=== PATIENT | female | born 1985 | race Caucasian/White ===

== ENCOUNTER → 2016-10-28 | Outpatient (CLI) | payer OTHER ==
[2016-10-28 13:13] LABS: HEMATOCRIT 37.2 % (35.0-46.0); MEAN CELL VOLUME 68.4 FL (80.0-100.0); MEAN CORPUSCULAR HEMOGLOBIN 21.5 PG (27.0-34.0); MEAN CORPUSCULAR HGB CONC 31.4 % (32.0-36.0); PLATELET COUNT 206 TH/MM3 (150-450); RED BLOOD COUNT 5.44 MIL/MM3 (4.00-5.30); RED CELL DISTRIBUTION WIDTH 14.4 % (11.6-17.2); REVIEW FLAG FINAL
[2016-10-28 13:48] LABS: FREE T4 0.84 NG/DL (0.76-1.46)
[2016-10-28 13:51] LABS: RUBELLA IGG ANTIBODY 148.6 IU/mL (10.0-500.0); RUBELLA STATUS IMMUNE (IMMUNE)
[2016-10-29 14:56] LABS: RAPID PLASMA REAGIN SCREEN NON-REACTIVE (NON-REACTVE)
== END ==
LOC: CLAB 12:28
DX: Z31.49 Encounter for other procreative investigation and testing (principal); Z11.59 Encounter for screening for other viral diseases; Z11.9 Encounter for screening for infectious and parasitic diseases, unspecified
CPT/HCPCS: 36415; 84439; 84443; 85027; 86592; 86703; 86705; 86762; 86787; 86803; 86900; 86901; 87340

== ENCOUNTER → 2016-10-31 | Outpatient (CLI) | payer OTHER ==
[2016-10-31 09:57] LABS: TRANSFERRIN IRON PROFILE 184 MG/DL (200-360)
[2016-10-31 10:00] LABS: FERRITIN 60 NG/ML (8-252)
== END ==
LOC: CLAB 08:49
DX: D50.8 Other iron deficiency anemias (principal)
CPT/HCPCS: 36415; 82728; 83020; 83540; 83550

== ENCOUNTER → 2016-12-31 | Outpatient (CLI) | payer OTHER ==
[2016-12-31 10:24] LABS: BETA HCG QUANT 227 MIU/ML (0-5)
[2017-01-02 17:51] LABS: PROGESTERONE 15.2 ng/mL
== END ==
LOC: CLAB 09:33
DX: Z32.00 Encounter for pregnancy test, result unknown (principal)
CPT/HCPCS: 36415; 82670; 84144; 84702

== ENCOUNTER → 2017-03-16 | Outpatient (CLI) | payer OTHER ==
[2017-03-16 08:38] LABS: AUTOMATED NEUTROPHIL # 8.8 TH/MM3 (1.8-7.7); BASOPHIL % 0.3 % (0.0-2.0); EOSINOPHIL # 0.2 TH/MM3 (0-0.4); EOSINOPHIL % 1.3 % (0.0-4.0); HEMATOCRIT 33.6 % (35.0-46.0); HEMO FLAGS DIFF FINAL; LYMPH % 19.4 % (9.0-44.0); LYMPHOCYTE # 2.3 TH/MM3 (1.0-4.8); MEAN CELL VOLUME 66.6 FL (80.0-100.0); MEAN CORPUSCULAR HEMOGLOBIN 20.6 PG (27.0-34.0); MEAN CORPUSCULAR HGB CONC 30.9 % (32.0-36.0); MONO % 4.7 % (0.0-8.0); NEUT % 74.3 % (16.0-70.0); PLATELET COUNT 208 TH/MM3 (150-450); RED BLOOD COUNT 5.05 MIL/MM3 (4.00-5.30); RED CELL DISTRIBUTION WIDTH 14.9 % (11.6-17.2); WHITE BLOOD COUNT 11.8 TH/MM3 (4.0-11.0)
[2017-03-16 09:06] LABS: RUBELLA IGG ANTIBODY 129.1 IU/mL (10.0-500.0); RUBELLA STATUS IMMUNE (IMMUNE)
[2017-03-16 09:25] LABS: SICKLE CELL SCREEN NEG (NEG)
[2017-03-16 11:03] LABS: BACTERIA, URINE OCC /hpf; BLOOD, URINE NEG (NEG); COMMENT (UR) CULT NOT INDICATED; CULTURE IF INDICATED CULT NOT INDICATED; GLUCOSE,URINE NEG (NEG); KETONE, URINE 10 mg/dL (NEG); MUCUS URINE FEW /lpf (OCC); NITRITE,URINE NEG (NEG); SQUAMOUS EPITHELIAL CELL URINE 1 /hpf (0-5); URINE COLOR YELLOW (YELLW/STRAW)
== END ==
LOC: CLAB 07:39
PROVIDERS: ATTEND Obstetrics & Gynecology
DX: Z34.81 Encounter for supervision of other normal pregnancy, first trimester (principal)
CPT/HCPCS: 36415; 81001; 81220; 84443; 85025; 85660; 86592; 86762; 86787; 86850; 86900; 86901; 87340

== ENCOUNTER → 2017-04-23 | Outpatient (CLI) | payer OTHER ==
[2017-04-24 17:14] LABS: CALCULATED AGE AT EDD 32 years; GA USED IN RISK ESTIMATE Scan estimate; MATERNAL RACE BLACK non-Black; MATERNAL WEIGHT (LBS) 166 lbs
== END ==
LOC: CLAB 09:22
PROVIDERS: ATTEND Obstetrics & Gynecology
DX: Z34.92 Encounter for supervision of normal pregnancy, unspecified, second trimester (principal)
CPT/HCPCS: 36415; 81511

== ENCOUNTER → 2017-05-13 | Outpatient (CLI) | payer OTHER | LOC: HPND 08:04 | PROVIDERS: ATTEND Obstetrics & Gynecology | DX: O30.042 Twin pregnancy, dichorionic/diamniotic, second trimester (principal); O09.812 Supervision of pregnancy resulting from assisted reproductive technology, second trimester | CPT/HCPCS: 76811; 76812; 76817; 76825; 76827; 93325 ==

== ENCOUNTER → 2017-06-05 | Outpatient (CLI) | payer OTHER ==
[2017-06-05 09:50] LABS: HEMATOCRIT 34.5 % (35.0-46.0)
[2017-06-05 10:10] LABS: BACTERIA, URINE MANY /hpf; BILIRUBIN, URINE NEG (NEG); BLOOD, URINE NEG (NEG); GLUCOSE,URINE NEG (NEG); KETONE, URINE NEG (NEG); MUCUS URINE FEW /lpf (OCC); NITRITE,URINE NEG (NEG); PH, URINE 6.5 (5.0-8.5); SQUAMOUS EPITHELIAL CELL URINE 7 /hpf (0-5); URINE COLOR YELLOW (YELLW/STRAW); URINE LEUKOCYTE ESTERASE SMALL (NEG)
== END ==
LOC: CLAB 08:16
PROVIDERS: ATTEND Obstetrics & Gynecology
DX: Z34.83 Encounter for supervision of other normal pregnancy, third trimester (principal); Z33.1 Pregnant state, incidental; R82.99 Other abnormal findings in urine
CPT/HCPCS: 36415; 81001; 82951; 85014; 85018; 87086

== ENCOUNTER → 2017-06-08 | Outpatient (CLI) | payer OTHER | LOC: HPND 10:21 | PROVIDERS: ATTEND Obstetrics & Gynecology | DX: O09.812 Supervision of pregnancy resulting from assisted reproductive technology, second trimester (principal); O30.042 Twin pregnancy, dichorionic/diamniotic, second trimester; O31.8X Other complications specific to multiple gestation | CPT/HCPCS: 76816; 76817; 76818 ==

== ENCOUNTER 2017-06-15 09:22 | Observation (INO) | payer OTHER ==
[2017-06-15] VITALS (23 sets, daily range): BP systolic 126–145; BP diastolic 67–93; PULSE 78–99; RESP 16–49; TEMP 98–98.4
[~2017-06-15] VITALS: Ht 162.6 cm; Wt 86.2 kg
[2017-06-15] MEDS ORDERED: SODIUM CHLORIDE 0.9% FLUSH 10 ML FLUSH IV FLUSH PRN (09:30)
[2017-06-15] MEDS ORDERED: ONDANSETRON ODT 4 MG TAB PO PRN (09:30)
--- NOTE | 2017-06-15 09:52 | PD ---
HPI Chief Complaint Elevated blood pressure Date Seen: Jun 15, 2017 Time Seen: 09:47 Travel History International Travel<30 Days: No Contact w/Intl Traveler<30Days: No Known Affected Area: No History of Present Illness HPI 32-year-old primigravida at 27 weeks 5 days gestation with an EDC of September 08, 2017 who was sent from OB diagnostics due to increased blood pressure. The patient has been checking some blood pressures at home and has had several readings greater than 140 systolic. She notes a mild headache today, no visual changes or abdominal pain. Mild increase in swelling noted. History Past Medical History Medical History: Denies Significant Hx Obstetric History Obstetric History Dichorionic diamniotic twin gestation, 23% discordance recent ultrasound, biophysical profiles 10 of 10 this morning care with Dr. Veronica Past Surgical History Narrative Surgical Appendectomy Family History Family History: Negative Social History Alcohol Use: No Tobacco Use: No Substance Abuse: No Allergies-Medications (Allergen,Severity, Reaction): Coded Allergies: doxycycline (Verified Allergy, Unknown, 06/15/17) rash Review of Systems Except as stated in HPI: all other systems reviewed are Neg Physical Exam Narrative GENERAL: Well-nourished, well-developed patient. SKIN: Warm and dry. HEAD: Normocephalic and atraumatic. EYES: No scleral icterus. No injection or drainage. ENT: No nasal drainage noted. Mucous membranes pink. Airway patent. NECK: Supple, trachea midline. No JVD. CARDIOVASCULAR: Regular rate and rhythm without murmurs, gallops, or rubs. RESPIRATORY: Breath sounds equal bilaterally. No accessory muscle use. BREASTS: Bilateral exam showed no masses , no retractions, no nipple discharge. ABDOMEN/GI: Abdomen soft, non-tender, bowel sounds present, no rebound, no guarding Gravid to [-30] weeks size Fundal Height: [-] GENITOURINARY: External Genitalia: intact and normal in appearance BUS glands: [-] Cervix: [-] Dilatation: [-] Effacement: [-] Station: [-] Presentation: [-] Membranes: [intact or ruptured] Uterine Contractions: [-] FHT's: Category: [-12] Baseline: [-] Reactive: [-Yes 2] Variability: [-] Decels: [-] EXTREMITIES: No cyanosis, trace edema. BACK: Nontender without obvious deformity. No CVA tenderness. NEUROLOGICAL: Awake and alert. Motor and sensory grossly within normal limits. Five out of 5 muscle strength in all muscle groups. Normal speech. Data Data Vital Signs Reviewed: Yes Orders Orders Place In Observation (06/15/17 ) Code Status (06/15/17 09:28) Vital Signs (Adult) Q5MX4,Q15MX4,Q30MX2,Q1H (06/15/17:28) Activity Bed Rest (06/15/17:) Intake + Output Q1H (06/15/17:28) Notify Dr. Palencia (06/15/17:28) Diet Liquid (06/15/17 Breakfast) Sodium Chloride 0.9% Flush (Ns Flush) (06/15/17 09:30) Sodium Chloride 0.9% Flush (Ns Flush) (06/15/17 21:00) Ondansetron Odt (Zofran Odt) (06/15/17 09:30) Knkmpsdl-Fec-Vrpve-Iron Prenat ([place] (06/16/17 09:00) Cbc No Diff, Includes Plts (06/15/17 09:28) Cbc No Diff, Includes Plts (06/16/17 06:00) Comprehensive Metabolic Panel (06/15/17:28) Comprehensive Metabolic Panel (06/16/17 06:00) Uric Acid (06/15/17:28) Urinalysis - C+S If Indicated (06/15/17:) Total Protein 24hr Urine (06/15/17:28) MDM Medical Record Reviewed: Yes Narrative Course / MDM Assessment: 27 week dichorionic diamniotic twin gestation with elevated blood pressures admitted for observation and rule out preeclampsia. Plan: Initiate 24-hour urine, CBC, CMP Oziel Gordon MD Jun 15, 2017 09:52
[2017-06-15 10:12] LABS: HEMATOCRIT 34.9 % (35.0-46.0); HEMOGLOBIN 11.1 GM/DL (11.6-15.3); MEAN CELL VOLUME 68.5 FL (80.0-100.0); MEAN CORPUSCULAR HEMOGLOBIN 21.7 PG (27.0-34.0); MEAN CORPUSCULAR HGB CONC 31.7 % (32.0-36.0); MEAN PLATELET VOLUME 11.3 FL (7.0-11.0); PLATELET COUNT 153 TH/MM3 (150-450); RED BLOOD COUNT 5.09 MIL/MM3 (4.00-5.30); RED CELL DISTRIBUTION WIDTH 14.8 % (11.6-17.2); WHITE BLOOD COUNT 14.8 TH/MM3 (4.0-11.0)
[2017-06-15 10:22] LABS: BACTERIA, URINE RARE /hpf; BILIRUBIN, URINE NEG (NEG); BLOOD, URINE NEG (NEG); GLUCOSE,URINE NEG (NEG); HYALINE CAST, URINE 1 /lpf (RARE); KETONE, URINE NEG (NEG); MUCUS URINE FEW /lpf (OCC); NITRITE,URINE NEG (NEG); SQUAMOUS EPITHELIAL CELL URINE 1 /hpf (0-5); URINE COLOR YELLOW (YELLW/STRAW); URINE LEUKOCYTE ESTERASE SMALL (NEG)
[2017-06-15 10:39] LABS: ALBUMIN 2.8 GM/DL (3.4-5.0); AST (GOT) 24 U/L (15-37); BICARBONATE 22.6 MEQ/L (21.0-32.0); BLOOD UREA NITROGEN 9 MG/DL (7-18); CHLORIDE 107 MEQ/L (98-107); CREATININE 0.52 MG/DL (0.50-1.00); GLOMERULAR FILTRATION RATE 137 ML/MIN (>89); GLUCOSE,RANDOM 70 MG/DL (74-106); SODIUM (NA) 139 MEQ/L (136-145)
[2017-06-15 10:42] LABS: ALKALINE PHOSPHATASE 129 U/L (45-117); ALT (GPT) 24 U/L (10-53); TOTAL BILIRUBIN ADULT 0.4 MG/DL (0.2-1.0); TOTAL PROTEIN 6.7 GM/DL (6.4-8.2)
[2017-06-15] MEDS ORDERED: PREN29TA PO (11:09)
[2017-06-15] MEDS ORDERED: DHA100CA PO (11:11)
[2017-06-15] MEDS ORDERED: VITD400 PO (11:11)
[2017-06-15] MEDS ORDERED: ASPI-516 (11:11)
[2017-06-15] MEDS ORDERED: ACETAMINOPHEN 325 MG TAB PO PRN (13:15)
[2017-06-15] MEDS ORDERED: BETAMETHASONE SOD PHOS/ACETATE SUSP 30 MG/5 ML VIAL IM ONE (13:45)
--- NOTE | 2017-06-15 16:43 | HHI.PR ---
COLOR FINISHER Note Note note placed in error Prudencio Warner MD Jun 15, 2017 16:43
[2017-06-15] MEDS ORDERED: SODIUM CHLORIDE 0.9% FLUSH 10 ML FLUSH IV FLUSH SCH (21:00)
--- NOTE | 2017-06-15 22:38 | HHI.PR ---
Addendum to Inpatient Note Addendum Reason: Additional Documentation Additional Information Consult Maternal Hx: 32y/o, , female at 27 weeks gestation with diagnosis of gestation hypertension (r/o pre-eclampsia) and di/di twin gestation. Mother admitted to L & D on 06/15/17 secondary to hypertension with headache and vision changes. Most recent Ultrasound on 06/15/17 confirms intrauterine twin , currently at 27.6 weeks gestation with discordance of ~23%. Twin A has known malpresentation which will require a C/S at the time of delivery per OB note. Estimated weight of twin A is 888 grams and twin B 1156 grams. Maternal risk factors/complications: IVF Maternal Labs: Rubella immune, RPR NR, Hepatitis B Neg, HIV Neg, GC Neg, CZ Neg, GBS unknown Maternal Medications: PNV Vitamin D3 Betamethasone (1st dose given 06/15/17) Social: Marital status: ( Latrice was present for consultation) Family Hx: First Substance Abuse: None Discussion: [employer] and NICU supervisor in charge (Mounika Pozo) met with MOB and her to discuss potential delivery. Initially, delivery room resuscitation and airway management were discussed. The need for CPAP +/- PPV/intubation was discussed. The importance of receiving steroids was explained as well as the potential need for surfactant administration after delivery. It was then explained that the infants would need IV placement and potentially central line placement for IVF/nutritional management while enteral feedings are initiated and gradually advanced. Mom intends to breastfeed and was encouraged to start pumping as soon as possible after delivery (ideally within the first hour). The importance of using donor breast milk if moms milk is not available was discussed. Infants will receive feeds via a nasogastric tube initially until they are developmentally ready to take feeds by mouth. Family was informed about the potential risk of infection that may require a rule out course of antibiotics and a blood culture which will be determined by the team present at the delivery. The increased risk of jaundice and need for close monitoring was discussed. Other risks of prematurity and appropriate screening such as IVH/ 1 week HUS and ROP/4 week ophthalmology exam were explained. NICU admission was explained. MOB asked about kangaroo care in the delivery room and was told that would depend on gestational age at delivery. Kangaroo care is strongly encouraged after admission and stabilization in the NICU. Frequent family visiting and parental involvement in infants care is strongly encouraged. Multidisciplinary rounds were discussed and again parental participation was encouraged. Medical team coverage with 24/7 [employer] coverage and latin american studies director presence or rapid response as needed was explained. Support services such as and case management were also discussed. MOB and verbalized understanding. MOB has a positive attitude and is hopeful to continue to closer to term but asked appropriate questions and appreciated information. Family was encouraged to process information and request to speak with team in the future should further questions arise. . Greater than 50% of the consultation time was spent with the patient. Dulce Short Jun 15, 2017 22:38
[2017-06-16 04:35] VITALS: BP 148/67; PULSE 77; RESP 16; TEMP 98
[2017-06-16 05:51] LABS: HEMATOCRIT 32.7 % (35.0-46.0); HEMOGLOBIN 10.5 GM/DL (11.6-15.3); MEAN CELL VOLUME 67.5 FL (80.0-100.0); MEAN CORPUSCULAR HEMOGLOBIN 21.6 PG (27.0-34.0); MEAN PLATELET VOLUME 11.8 FL (7.0-11.0); PLATELET COUNT 160 TH/MM3 (150-450); RED BLOOD COUNT 4.84 MIL/MM3 (4.00-5.30); RED CELL DISTRIBUTION WIDTH 14.7 % (11.6-17.2); WHITE BLOOD COUNT 19.6 TH/MM3 (4.0-11.0)
[2017-06-16 06:16] LABS: ALBUMIN 2.7 GM/DL (3.4-5.0); ALT (GPT) 22 U/L (10-53); AST (GOT) 24 U/L (15-37); BICARBONATE 19.2 MEQ/L (21.0-32.0); CHLORIDE 108 MEQ/L (98-107); CREATININE 0.62 MG/DL (0.50-1.00); GLOMERULAR FILTRATION RATE 112 ML/MIN (>89); GLUCOSE,RANDOM 113 MG/DL (74-106); SODIUM (NA) 137 MEQ/L (136-145)
[2017-06-16 06:22] LABS: ALKALINE PHOSPHATASE 124 U/L (45-117); BLOOD UREA NITROGEN 11 MG/DL (7-18); TOTAL BILIRUBIN ADULT 0.4 MG/DL (0.2-1.0); TOTAL PROTEIN 6.4 GM/DL (6.4-8.2)
[2017-06-16 07:31] VITALS: BP 138/81; PULSE 80
[2017-06-16 07:59] VITALS: TEMP 98
[2017-06-16 08:00] VITALS: RESP 16
--- NOTE | 2017-06-16 08:21 | HHI.PR ---
MANAGER STRATEGIC Note Note S: Doing well, no visual changes, headache has lessened without treatment since yesterday, she states she has developed headaches throughout her , denies right upper quadrant pain, endorses movement. O: Fetus: FHTs: - A: 130s to 140s, moderate variability, accelerations present, no decelerations - B: 130s to 140s, moderate variability, accelerations present, no decelerations [place]: A/P: 32 yo G1 at 28wd 1. IVF preg / Shoaib gestation: BID EFM, Cat 1 tracings x2 - EFW (06/08): A = 888g (23%), B = 1156g (72%), 23% discord. Posterior placentas - US on 06/15 = 10/ BPP x2, normal dopplers, trans/trans. - Malpresentation of Baby A, aware of need for at time of delivery. - Male (A) / Female (B) - s/p BMZ #1 on 06/15, repeat today, pt may return for BMZ only if d/c this AM 2. r/o Prec vs GHTN: - HELLP labs WNL on arrival, Plts of 153 (BL of 208 in March), repeat this AM unchanged, patient's headache improved without treatment, also has a history of headaches. Do not feel this represents severe features at this time, blood pressures normotensive to mild range throughout stay. - 24hr urine pending, (no baseline to compare) - Dispo: likely continue outpatient monitoring, 2x / week BPP & dopplers and weekly HELLP, discussed limited activity, signs and symptoms of preeclampsia, 3. Elevated DS risk on QS: 1:250-1:416, s/p MFM consult, declined Amnio, normal anatomys. Prudencio Warner MD Jun 16, 2017 08:21
--- NOTE | 2017-06-16 08:41 | HHI.DS ---
Admission Date Jun 15, 2017 at 09:44 Discharge Date: Jun 16, 2017 Admitting Diagnosis Dx at time of discharge 1. Preeclampsia without severe features 2. Dichorionic diamniotic twin gestation at 28 weeks and 0 days 3. growth discordance 4. Increased Down syndrome risk on quad screen Diagnosis: Brief History 32 yo G1 who presented at 27w6d due to new elevated BPs found during testing, she had HELLP labs that returned overall normal, her platelets were lower than her baseline, the beginning of her they were 208, and there were 153, her HELLP labs were re collected 24-hour after admission and remained stable and normal. Her 24 hr urine resulted at 754mg. She received betamethasone dose #1 for lung maturity and the plan was for her to return in the afternoon of the day of her discharge for #2. She had category 1 tracing for both baby A and baby B during her stay. She had a 10 out of 10 BPP the day prior to her discharge. She did have a mild headache upon presentation, this had almost resolved at the day of discharge without treatment. She had no other signs or symptoms of severe disease. Follow-up instructions: Patient to follow-up in the office on or Thursday of this week. She is also to continue twice weekly testing with the MFM practice at the hospital, and also suggested weekly HELLP labs. Pt Condition on Discharge: Good Discharge Disposition: Discharge Home (Patient recommended limited activities, monitor blood pressures at home and record these, and also be mindful of headache, blurred vision, epigastric pain or right upper quadrant pain.) Discharge Instructions Diet Instructions: As Tolerated, No Restrictions Activities You Can Perform: See Additionl Instruction (limited activity) Activities to Avoid: Strenuous Activity Additional Activity Instruc.: Limited activity, Follow up Referrals: SUPERVISOR TELEPHONE ANSWERING SERVICE - 1 Week @ [facility] Continued Medications: Aspirin (Aspirin) 81 Mg Chew 81 MG DAILY, TAB 0 Refills Cholecalciferol (Vitamin D3) 400 Unit Tab 800 UNITS PO DAILY for Nutritional Supplement, #1 TAB 0 Refills Docosahexaenoic Acid (Dha [place] 3) 100 Mg Cap PO DAILY, CAP Vit-Iron Carbonyl ( Plus Iron 29-1 mg) 29 Mg Iron-1 Mg Tab 1 TAB PO DAILY for Nutritional Supplement, #30 TAB 0 Refills Prudencio Warner MD Jun 16, 2017 08:41
[2017-06-16] MEDS ORDERED: DHA PO SCH (09:00)
[2017-06-16] MEDS ORDERED: ASPIRIN 81 MG CHEW TAB PO SCH ×2 (09:00)
[2017-06-16] MEDS ORDERED: CHOLECALCIFEROL (VIT D3) 400 UNIT TAB PO SCH (09:00)
[2017-06-16] MEDS ORDERED: MULTIVIT/MIN/PREN/FOL AC/IRON PRENATAL TAB PO SCH (09:00)
[2017-06-16] MEDS ORDERED: BETAMETHASONE SOD PHOS/ACETATE SUSP 30 MG/5 ML VIAL IM ONE (14:00)
== END 2017-06-16 09:21 | disposition home or self-care (01) ==
LOC: HOBED 09:22 → H2EA 09:44
PROVIDERS: ADMIT Obstetrics & Gynecology; ATTEND Obstetrics & Gynecology
DX: O30.043 Twin pregnancy, dichorionic/diamniotic, third trimester (principal); O14.93 Unspecified pre-eclampsia, third trimester; O09.813 Supervision of pregnancy resulting from assisted reproductive technology, third trimester; O32.9XX0 Maternal care for malpresentation of fetus, unspecified, not applicable or unspecified; Z3A.28 28 weeks gestation of pregnancy
CPT/HCPCS: 59025; 80053; 81001; 84157; 84550; 85027; 96372; 99285; G0378; J0702

== ENCOUNTER → 2017-06-16 | Outpatient (CLI) | payer OTHER ==
[~2017-06-16] MED LIST: ASPI-516; BETAMETHASONE SOD PHOS/ACETATE SUSP 30 MG/5 ML VIAL IM ONE; DHA100CA PO; MORPHINE SULFATE PF 5 MG/10 ML VIAL ONE; ONDANSETRON HCL 4 MG/2 ML VIAL ONE; OXYC1TAB63 PO; OXYTOCIN 30 UNITS-500ML PREMIX 500 ML ONE; PREN29TA PO; VITD400 PO
== END ==
LOC: HOBG 14:27
PROVIDERS: ATTEND Obstetrics & Gynecology
DX: O14.92 Unspecified pre-eclampsia, second trimester (principal); O30.042 Twin pregnancy, dichorionic/diamniotic, second trimester; Z3A.27 27 weeks gestation of pregnancy
CPT/HCPCS: 96372; J0702

== ENCOUNTER 2017-06-19 01:55 | Inpatient (IN) | payer OTHER ==
[2017-06-19] VITALS (49 sets, daily range): BP systolic 70–158; BP diastolic 52–105; PULSE 63–124; RESP 16–22; TEMP 97.8–98.6; O2SAT 97–100
[~2017-06-19 01:55] MED LIST changes: -BETAMETHASONE SOD PHOS/ACETATE SUSP 30 MG/5 ML VIAL IM ONE; -MORPHINE SULFATE PF 5 MG/10 ML VIAL ONE; -ONDANSETRON HCL 4 MG/2 ML VIAL ONE; -OXYC1TAB63 PO; -OXYTOCIN 30 UNITS-500ML PREMIX 500 ML ONE
--- NOTE | 2017-06-19 02:04 | PD ---
HPI Chief Complaint "I'm pre-eclamptic" Date Seen: Jun 19, 2017 Time Seen: 02:02 Travel History International Travel<30 Days: No Contact w/Intl Traveler<30Days: No Known Affected Area: No History of Present Illness HPI Pt is a 32y/o G1 @ 28.3wks (IVF ) with bill twins. She has PNC with [facility]. She presents stating that she is pre-eclamptic and has epigastric pain. She was in the diagnostic center on 06/15 and was found to have elevated BPs. She was sent to triage for evaluation/work up and was dx'd with preE ( proteinuria 500, BPs mild range). She received BMZ x2 (completed on 06/17) as an outpt. She reports that overnight she awoke with epigastric pain, N/V. She reports +FM x2. No LOF, VB, ctx. is complicated by: -- IVF -- bill twins -- 23% discordant growth -- baby A AEDF -- preE Weeks Gestation: 28 Para: 0 : 1 History Past Medical History Medical History: Denies Significant Hx Past Surgical History Surgical History: No Previous Surgery Family History Family History: Negative Social History Alcohol Use: No Tobacco Use: No Substance Abuse: No Allergies-Medications (Allergen,Severity, Reaction): Coded Allergies: doxycycline (Verified Allergy, Unknown, 06/15/17) rash Home Meds Reported Medications Cholecalciferol (Vitamin D3) 400 Unit Tab, 800 UNITS PO DAILY for Nutritional Supplement, #1 TAB 0 Refills 06/15/17 Docosahexaenoic Acid (Dha [place] 3) 100 Mg Cap, PO DAILY, CAP 06/15/17 Aspirin (Aspirin) 81 Mg Chew, 81 MG DAILY, TAB 0 Refills 06/15/17 Vit-Iron Carbonyl ( Plus Iron 29-1 mg) 29 Mg Iron-1 Mg Tab, 1 TAB PO DAILY for Nutritional Supplement, #30 TAB 0 Refills 06/15/17 Review of Systems Except as stated in HPI: all other systems reviewed are Neg Physical Exam Narrative General: well developed, well nourished, no acute distress HEENT: normocephalic atraumatic, extraocular movements intact, neck supple Abdomen: soft, gravid, nontender, nondistended Uterus: fundus soft Extremities: full range of motion Skin: normal coloration, no rashes, no suspicious skin lesions noted Neurologic: cranial nerves 2-12 grossly intact, normal muscle tone, normal gait Psychiatric: normal mood and affect, appropriate FHTs: A - 145, +accels, no decels, moderate variability, reactive B - 145, +accels, no decels, moderate variability, reactive [place]: quiet Cvx: deferred Data Data Vital Signs Reviewed: Yes Orders Orders Vital Signs (Adult) .ON ADMISSION (06/19/17 02:01) ^ Labor Status (06/19/17 02:01) Urinalysis - C+S If Indicated (06/19/17 02:01) ^ Non Stress Test (06/19/17 02:01) MDM Plan 32y/o G1 @ 28.3wks with bill twins, discordant growth, baby A AEDF, preE. -- labs drawn to r/o HELLP -- epigastric pain is only new sx -- s/p BMZ x2 Case discussed with Dr. Escobar (supervisor long goods). Plan to admit to L&D, magnesium for neuroprotection, monitor BPs closely. Diagnosis Diagnosis: Primary Impression: 28 weeks gestation of Additional Impressions: Dichorionic diamniotic twin in third trimester conceived through in vitro fertilization Pre-eclampsia affecting , antepartum Taurus Summers MD Jun 19, 2017 02:03
[2017-06-19] MEDS ORDERED: ONDANSETRON HCL 4 MG/2 ML VIAL IV PUSH ONE (02:30)
[2017-06-19] MEDS ORDERED: MAGNESIUM SULFATE 4 GM ONE (02:38)
[2017-06-19] MEDS ORDERED: MAGNESIUM SULFATE 40 GM PREMIX 1,000 ML ONE (02:38)
[2017-06-19] MEDS: LACTATED RINGER'S 1000 ML INJ 1,000 ML IV SCH ×6 (02:48→18:18)
[2017-06-19 02:51] LABS: HEMATOCRIT 34.3 % (35.0-46.0); HEMOGLOBIN 10.9 GM/DL (11.6-15.3); MEAN CELL VOLUME 68.2 FL (80.0-100.0); MEAN CORPUSCULAR HEMOGLOBIN 21.7 PG (27.0-34.0); MEAN CORPUSCULAR HGB CONC 31.8 % (32.0-36.0); MEAN PLATELET VOLUME 11.5 FL (7.0-11.0); PLATELET COUNT 155 TH/MM3 (150-450); RED BLOOD COUNT 5.04 MIL/MM3 (4.00-5.30); WHITE BLOOD COUNT 18.9 TH/MM3 (4.0-11.0)
--- NOTE | 2017-06-19 03:13 | PD ---
HPI Chief Complaint Severe RUQT at 28+ weeks with twin IUP Date Seen: Jun 19, 2017 Time Seen: 02:52 Travel History International Travel<30 Days: No Contact w/Intl Traveler<30Days: No Known Affected Area: No History of Present Illness HPI 32 yo mwf at 28 2/7 weeks with di/di IVF twins who is known to have pre eclampsia earlier this week and sent home for bedrest returns today with severe RUQT. Denies MOHR. Has nausea and vomited after 7 pm meal 7 hours ago. No scotoma. PNC with Dr. Veronica. Noted growth discordancy with twin a >20% smaller than twin b. Last weights on 06/08/17 with A weighing 888cm and B weighing 1156. Both not vertex. No symptoms of labor. Strips intially reassuring. Received steroids 48 hours ago. platelets currently 155 (N). LFTs pending. Weeks Gestation: 29 Para: 0 : 1 History Past Medical History Medical History: Denies Significant Hx Obstetric History Obstetric History nullip and had IVF Past Surgical History Surgical History: No Previous Surgery (appendectomy) Family History Family History: Negative Social History Alcohol Use: No Tobacco Use: No Substance Abuse: No Allergies-Medications (Allergen,Severity, Reaction): Coded Allergies: doxycycline (Verified Allergy, Unknown, 06/15/17) rash Home Meds Reported Medications Cholecalciferol (Vitamin D3) 400 Unit Tab, 800 UNITS PO DAILY for Nutritional Supplement, #1 TAB 0 Refills 06/15/17 Docosahexaenoic Acid (Dha [place] 3) 100 Mg Cap, PO DAILY, CAP 06/15/17 Aspirin (Aspirin) 81 Mg Chew, 81 MG DAILY, TAB 0 Refills 06/15/17 Vit-Iron Carbonyl ( Plus Iron 29-1 mg) 29 Mg Iron-1 Mg Tab, 1 TAB PO DAILY for Nutritional Supplement, #30 TAB 0 Refills 06/15/17 Review of Systems Gastrointestinal: Nausea, Vomiting, Abdominal Pain Physical Exam Vital Signs Date Time Temp Pulse Resp B/P (MAP) Pulse Ox O2 Delivery O2 Flow Rate FiO2 06/19/17 02:38 22 06/19/17 02:35 65 06/19/17 02:34 146/73 (97) 06/19/17 02:13 22 06/19/17 02:13 98.0 65 18 152/93 (112) Narrative GENERAL: Well-nourished, well-developed patient. SKIN: Warm and dry. HEAD: Normocephalic and atraumatic. EYES: No scleral icterus. No injection or drainage. ENT: No nasal drainage noted. Mucous membranes pink. Airway patent. NECK: Supple, trachea midline. No JVD. CARDIOVASCULAR: Regular rate and rhythm without murmurs, gallops, or rubs. RESPIRATORY: Breath sounds equal bilaterally. No accessory muscle use. BREASTS: Bilateral exam showed no masses , no retractions, no nipple discharge. ABDOMEN/GI: Abdomen soft,RUQT significant, bowel sounds present, no rebound, no guarding 34 GENITOURINARY: External Genitalia: intact and normal in appearance strip reassuring x 2 EXTREMITIES: No cyanosis or edema. BACK: Nontender without obvious deformity. No CVA tenderness. NEUROLOGICAL: Awake and alert. Motor and sensory grossly within normal limits. Five out of 5 muscle strength in all muscle groups. Normal speech.Normal DTRs Data Data Orders Orders Vital Signs (Adult) .ON ADMISSION (06/19/17 02:01) ^ Labor Status (06/19/17 02:01) Urinalysis - C+S If Indicated (06/19/17 02:01) ^ Non Stress Test (06/19/17 02:01) Cbc No Diff, Includes Plts (06/19/17 02:18) Comprehensive Metabolic Panel (06/19/17 02:18) Uric Acid (06/19/17 02:18) Lactated Ringer's 1000 Ml Inj (Lr 1000 M (06/19/17 02:18) Ondansetron Inj (Zofran Inj) (06/19/17 02:30) Magnesium Sulfate 40 Gm Premix (Magnesiu (06/19/17 02:38) Magnesium Sulfate 4 Gm Premix (Magnesium (06/19/17 02:38) MDM Medical Record Reviewed: Yes Interpretation(s) 28+ week twin IUP with pre eclampsia with severe features. strips reassuring platelets normal and LFTs pending non vertex x 2 I have spoken with [facility] and Dr. Uriarte and they are OK with keeping and delivering the twins here with the caveat that they may need transfer if extended ventilation. Starting MgSo4 now for seizure prophylaxis and neuroprotection. given fentanyl x 1 with good result. Have discussed risk of liver fracture, seizure, DIC and why delivery may be imminent. Will hope for 48 hours to give MgSO4 Diagnosis Diagnosis: Primary Impression: 28 weeks gestation of Additional Impressions: Dichorionic diamniotic twin in third trimester Pre-eclampsia affecting , antepartum conceived through in vitro fertilization Solange Escobar MD Jun 19, 2017 03:13
[2017-06-19 03:17] LABS: AMORPHOUS SEDIMENT, URINE FEW; BACTERIA, URINE RARE /hpf; BILIRUBIN, URINE NEG (NEG); BLOOD, URINE NEG (NEG); GLUCOSE,URINE NEG (NEG); KETONE, URINE NEG (NEG); MUCUS URINE FEW /lpf (OCC); NITRITE,URINE NEG (NEG); SQUAMOUS EPITHELIAL CELL URINE 1 /hpf (0-5); URINE COLOR YELLOW (YELLW/STRAW); URINE LEUKOCYTE ESTERASE NEG (NEG)
[2017-06-19 03:32] LABS: ALBUMIN 2.6 GM/DL (3.4-5.0); ALKALINE PHOSPHATASE 118 U/L (45-117); ALT (GPT) 127 U/L (10-53); AST (GOT) 141 U/L (15-37); BICARBONATE 21.6 MEQ/L (21.0-32.0); BLOOD UREA NITROGEN 12 MG/DL (7-18); CALCIUM 8.7 MG/DL (8.5-10.1); CHLORIDE 109 MEQ/L (98-107); CREATININE 0.59 MG/DL (0.50-1.00); GLOMERULAR FILTRATION RATE 118 ML/MIN (>89); GLUCOSE,RANDOM 87 MG/DL (74-106); SODIUM (NA) 140 MEQ/L (136-145); TOTAL BILIRUBIN ADULT 0.4 MG/DL (0.2-1.0); TOTAL PROTEIN 6.4 GM/DL (6.4-8.2)
[2017-06-19] MEDS ORDERED: LACTATED RINGER'S 1000 ML INJ 1,000 ML IV ONE ×2 (03:51→12:00)
--- NOTE | 2017-06-19 03:54 | PD.OB.ANTE ---
Subjective Interval History LFTs are considerably up and RUQT will not resolve even with fentanyl. Neonatology made aware. I do not think she is stable for transfer in any event and our NICU is OK with delivery here. With prep for section. Have counseled Xiao, her partner and her mom in [place] Have coags cooking now and two units cross matched. will go with spinal Objective Vital Signs Vital Signs Date Time Temp Pulse Resp B/P (MAP) Pulse Ox O2 Delivery O2 Flow Rate FiO2 06/19/17 03:06 136/78 (97) 06/19/17 03:00 70 138/76 (96) 06/19/17 02:55 64 133/76 (95) 06/19/17 02:51 20 06/19/17 02:50 67 138/82 (100) 06/19/17 02:43 69 158/93 (114) 06/19/17 02:38 22 06/19/17 02:35 65 06/19/17 02:34 146/73 (97) 06/19/17 02:13 22 06/19/17 02:13 98.0 65 18 152/93 (112) Lab & Micro Results Test 06/19/17 02:00 06/19/17 02:30 Urine Color YELLOW Urine Turbidity HAZY Urine pH 7.0 Urine Specific [place] 1.020 Urine Protein 30 mg/dL Urine Glucose (UA) NEG mg/dL Urine Ketones NEG mg/dL Urine Occult Blood NEG Urine Nitrite NEG Urine Bilirubin NEG Urine Urobilinogen LESS THAN 2.0 MG/DL Urine Leukocyte Esterase NEG Urine RBC 1 /hpf Urine WBC 2 /hpf Urine Squamous Epithelial Cells 1 /hpf Urine Amorphous Sediment FEW Urine Bacteria RARE /hpf Urine Mucus FEW /lpf Microscopic Urinalysis Comment CULT NOT INDICATED White Blood Count 18.9 TH/MM3 Red Blood Count 5.04 MIL/MM3 Hemoglobin 10.9 GM/DL Hematocrit 34.3 % Mean Corpuscular Volume 68.2 FL Mean Corpuscular Hemoglobin 21.7 PG Mean Corpuscular Hemoglobin Concent 31.8 % Red Cell Distribution Width 15.0 % Platelet Count 155 TH/MM3 Mean Platelet Volume 11.5 FL Blood Urea Nitrogen 12 MG/DL Creatinine 0.59 MG/DL Random Glucose 87 MG/DL Total Protein 6.4 GM/DL Albumin 2.6 GM/DL Calcium Level 8.7 MG/DL Uric Acid 4.7 MG/DL Alkaline Phosphatase 118 U/L Aspartate Amino Transf (AST/SGOT) 141 U/L Alanine Aminotransferase (ALT/SGPT) 127 U/L Total Bilirubin 0.4 MG/DL Sodium Level 140 MEQ/L Potassium Level 3.8 MEQ/L Chloride Level 109 MEQ/L Carbon Dioxide Level 21.6 MEQ/L Anion Gap 9 MEQ/L Estimat Glomerular Filtration Rate 118 ML/MIN Physical Exam GENERAL: Well-nourished, well-developed patient. CARDIOVASCULAR: Regular rate and rhythm without murmurs, gallops, or rubs. RESPIRATORY: Breath sounds equal bilaterally. No accessory muscle use. ABDOMEN/GI: Abdomen soft, non-tender. Fundus: [-] GENITOURINARY: External Genitalia: intact and normal in appearance Cervix: [-] Dilatation: [-] Effacement: [-] Station: [-] Presentation: [-] Membranes: [-] Uterine Contractions: [-] FHT's: Category: [-] Baseline: [-] Reactive: [-] Variability: [-] Decels: [-] EXTREMITIES: No cyanosis or edema, non-tender, without signs of DVT. Solange Escobar MD Jun 19, 2017 03:54
[2017-06-19 04:31] LABS: PROTHROMBIN TIME - PATIENT 9.9 SEC (9.8-11.6)
[2017-06-19] MEDS ORDERED: MEPERIDINE HCL 25 MG/ML VIAL ONE (04:51)
[2017-06-19] MEDS ORDERED: ceFAZolin 2 GM PREMIX 50 ML IV SCH (05:00)
[2017-06-19] MEDS ORDERED: CITRIC ACID-SODIUM CITRATE LIQ 30 ML UDC PO SCH (05:30)
[2017-06-19] MEDS ORDERED: MAGNESIUM SULFATE 40 GM PREMIX 1,000 ML IV SCH (05:37)
--- NOTE | 2017-06-19 05:37 | PD.OB.DELI ---
Procedure Note Section Procedure Pre Op Diagnosis: (1) Dichorionic diamniotic twin in third trimester (2) 28 weeks gestation of (3) Pre-eclampsia affecting , antepartum (4) conceived through in vitro fertilization Post Op Diagnosis: (1) Delivered by section (2) Dichorionic diamniotic twin in third trimester (3) 28 weeks gestation of (4) Pre-eclampsia affecting , antepartum (5) conceived through in vitro fertilization Performed by Solange Escobar Procedure: Primary Low Transverse Sec Indication for delivery: Maternal medical problems Informed consent obtained: For anesthesia, For procedure Confirmed correct: Patient, Procedure, Site, Time-out taken Anesthesia: Spinal (with duramorph) Medication prior to procedure: As documented in eMAR Monitoring during procedure: Blood pressure monitoring Urinary catheter: Inserted using sterile technique, To dependent drainage, ml urine output, Other (placed at time of magnesium initiation) Sterile preparation: Duraprep, In usual fashion Position: Supine with wedge to right side Operative Features Skin Incision: Pfannenstiel Uterine Incision: Low transverse w/knife / blunt ext Membranes Ruptured: Artificially (x 2), Appearance of fluid (x2) Presentation: Breech (Twin B), Transverse lie (twin A) Delivery date: Jun 19, 2017 Delivery time: 05:34 Delivery of infant: Assisted ( x 2) : Male, Female (Twin A male transverse-verted to breech and extraction 6 at 1 min and 8 at 5 min; 1080 gm) Weight: Twin B female breech extraction 2 at one minute and 7 at five 1400 Status of : Viable (x 2) Placenta delivered: Intact ( x 2) Medications: Oxytocin Estimated blood loss: 1000 Procedure tolerated: Well Maternal Condition: Stable Condition: Stable ( x 2) Procedure in detail dictated Solange Escobar MD Jun 19, 2017 05:37
[2017-06-19] MEDS ORDERED: oxyCODONE/ACETAMINOPHEN 5 MG/325 MG TAB PO PRN ×2 (05:45)
[2017-06-19] MEDS ORDERED: ZOLPIDEM TARTRATE 5 MG TAB PO PRN (05:45)
[2017-06-19] MEDS ORDERED: OXYTOCIN 30 UNITS-500ML PREMIX 500 ML IV ONE (05:45)
[2017-06-19] MEDS ORDERED: ONDANSETRON HCL 4 MG/2 ML VIAL IV PUSH PRN (05:45)
[2017-06-19] MEDS ORDERED: DOCUSATE SODIUM 50 MG/SENNA 8.6 MG TAB PO PRN (05:45)
[2017-06-19] MEDS ORDERED: CALCIUM GLUCONATE 10% 1 GM/10 ML VIAL IV PUSH PRN (05:45)
[2017-06-19] MEDS ORDERED: NIFEdipine 10 MG CAP PO PRN (05:45)
[2017-06-19] MEDS ORDERED: SODIUM CHLORIDE 0.9% FLUSH 10 ML FLUSH IV FLUSH PRN (05:45)
[2017-06-19] MEDS ORDERED: SIMETHICONE 80 MG CHEWABLE TAB PO PRN (05:45)
[2017-06-19] MEDS ORDERED: CARBOPROST TROMETHAMINE 250 MCG/ML VIAL ONE (05:49)
[2017-06-19] MEDS ORDERED: HYDROmorphone HCL PF 2 MG/ML VIAL ONE (06:15)
[2017-06-19] MEDS ORDERED: diphenhydrAMINE HCL 50 MG/ML VIAL ONE (07:14)
[2017-06-19] MEDS: SODIUM CHLORIDE 0.9% FLUSH 10 ML FLUSH IV FLUSH SCH ×2 (09:00→21:15)
[2017-06-19] MEDS ORDERED: LACTATED RINGER'S 1000 ML INJ 1,000 ML IV SCH (10:37)
[2017-06-19] MEDS ORDERED: HYDROmorphone HCL PF 2 MG/ML VIAL IV ONE ×2 (10:45)
[2017-06-19] MEDS ORDERED: EPIDURAL-NO SYSTEMIC NARCOTICS PRN (11:00)
[2017-06-19] MEDS ORDERED: EPIDURAL-DO NOT ADMINISTER ANTICOAGULANTS PRN (11:00)
[2017-06-19] MEDS ORDERED: EPIDURAL-DIPHENHYDRAMINE HCL 50 MG/ML VIAL IV PUSH PRN (11:00)
[2017-06-19] MEDS ORDERED: EPIDURAL-DIPHENHYDRAMINE HCL 50 MG CAP PO PRN (11:00)
[2017-06-19] MEDS ORDERED: EPIDURAL-NALOXONE HCL 0.4 MG/ML AMP IV PUSH PRN (11:00)
[2017-06-19] MEDS ORDERED: DEXAMETHASONE SOD PHOS 4 MG/ML VIAL IV ONE (12:00)
[2017-06-19] MEDS ORDERED: OXYTOCIN 10 UNIT/ML AMP IV ONE (12:00)
[2017-06-19] MEDS ORDERED: LIDOCAINE 2%/EPINEPHrine PF 1:200,000 20ML SDV OTHER ONE (12:00)
[2017-06-19] MEDS ORDERED: ceFAZolin INJ 1,000 MG VIAL IV ONE (12:00)
[2017-06-19] MEDS ORDERED: SODIUM CHLORIDE 0.9% 20 ML VIAL IV ONE (12:00)
[2017-06-19] MEDS ORDERED: ONDANSETRON HCL 4 MG/2 ML VIAL IV ONE (12:00)
[2017-06-19] MEDS ORDERED: NALOXONE IV SCH (13:00)
[2017-06-19] MEDS ORDERED: LACTATED RINGER S IV SCH (13:00)
--- NOTE | 2017-06-19 14:55 | MP ---
cc: SOLANGE SETH DATE OF SURGERY 06/19/2017 DATE OF 1985 PREOPERATIVE DIAGNOSIS 1. Twenty-eight plus week intrauterine with twins. 2. Preeclampsia with severe features. POSTOPERATIVE DIAGNOSIS 1. Twenty-eight plus week intrauterine with twins. 2. Preeclampsia with severe features. 3. Delivered. PROCEDURE Primary low transverse segment section. ANESTHESIA Spinal with Duramorph. SURGEON Luz. [employer] [place], [place] III. FINDINGS The patient came to labor and delivery with severe right upper quadrant tenderness and elevated blood pressures with MAP below 110. Platelets were normal at 155. The LFTs were significantly elevated. She was started on magnesium, but when the pain in the liver did not resolve and her LFTs came back the decision was made to deliver. The neonatology team and were all notified and the patient and her partner were counseled in depth. DETAILS OF PROCEDURE She was taken to the operating room. She was administered spinal with Duramorph, placed in dorsal supine position with weight off the vena cava. Coags were drawn prior to coming back for baseline and she was typed and crossed. She was given 2 grams of Ancef IV prior to arriving in the OR. A Caputo catheter had already been placed. Sequentials were placed on. A timeout was performed with all in attendance. After a three-minute prep drying was draped in a sterile fashion. After assuring adequate epidural anesthesia a Pfannenstiel incision was made with a knife and carried down through to the rectus fascia. The rectus fascia was incised with the knife and taken off the rectus muscle superiorly and inferiorly. The rectus muscle was in the midline and the parietal peritoneum was entered. A bladder flap was created off the lower uterine segment and a small incision midline was made into the intrauterine cavity. This was extended superiorly and inferiorly in a blunt fashion. Twin A was delivered with podalic version from transverse using classic Pinard maneuvers and due to his relative stability the cord was allowed to pulse for 45 seconds and was clamped x2, cut and he was handed over to the neonatology team. The cord was left clamped and the bag was broken on twin B, a girl. This baby was in breech position so she was delivered with classic Pinard maneuvers with a small "T" of the uterus to take any pressure off of her head. Again the cord was allowed to pulse 45 seconds and clamped and cut and she was handed off. Cord gas, a strip of cord and cord blood was obtained. The placentas were then delivered intact with three-vessel cord x2. The uterus was exteriorized. It was cleaned with a lap sponge and closed with chromic in a running interlocking fashion with a second horizontal imbricating suture. The incision appeared to be stable with no leaking or bleeding. Behind the uterus was carefully examined. The liver was palpated and no evidence of fracture. The uterus was then replaced in the abdominal cavity and copious lavage was performed. Off of tension the incision remained hemostatic. The rectus muscle was approximated with the underlying parietal peritoneum in a running non-interlocking fashion. The fascia was closed with #1 Vicryl in a running non-interlocking fashion. The subcutaneous tissue was closed with 3-0 plain to minimize space after being irrigated, and the skin was closed with 4-0 Vicryl on a Pro needle. Estimated blood loss was average for a delivery such as this, 1000 cc. The uterus was firm at the end. A small 0.5 cm skin tag right at the top of the mons was infiltrated with lidocaine and removed at the patient's request and sent for pathology. Sponge, instrument and needle count were correct. There was no evidence of DIC. She tolerated the procedure well and she went to the recovery room in stable condition. She will be on magnesium for 12-24 hours with follow-up labs as needed. Solange Seth MD PPC/BT /5:16 AM /2:28 PM
[2017-06-19] MEDS ORDERED: OXYTOCIN 30 UNITS-500ML PREMIX 500 ML IV PRN (15:45)
[2017-06-19] MEDS: IBUPROFEN 600 MG TAB PO PRN (21:14)
[2017-06-20] VITALS (11 sets, daily range): BP systolic 117–140; BP diastolic 64–80; PULSE 79–105; RESP 16–20; TEMP 97.9–99.1
[2017-06-20 07:48] LABS: MEAN CORPUSCULAR HEMOGLOBIN 21.7 PG (27.0-34.0); MEAN CORPUSCULAR HGB CONC 31.5 % (32.0-36.0); MEAN PLATELET VOLUME 11.9 FL (7.0-11.0); PLATELET COUNT 113 TH/MM3 (150-450); WHITE BLOOD COUNT 15.3 TH/MM3 (4.0-11.0)
[2017-06-20 07:55] LABS: HEMATOCRIT 20.7 % (35.0-46.0); HEMOGLOBIN 6.5 GM/DL (11.6-15.3)
[2017-06-20 08:28] LABS: ALBUMIN 2.1 GM/DL (3.4-5.0); ALKALINE PHOSPHATASE 89 U/L (45-117); ALT (GPT) 158 U/L (10-53); AST (GOT) 105 U/L (15-37); BICARBONATE 25.8 MEQ/L (21.0-32.0); BLOOD UREA NITROGEN 14 MG/DL (7-18); CALCIUM 7.7 MG/DL (8.5-10.1); CHLORIDE 105 MEQ/L (98-107); CREATININE 0.65 MG/DL (0.50-1.00); GLOMERULAR FILTRATION RATE 106 ML/MIN (>89); GLUCOSE,RANDOM 83 MG/DL (74-106); SODIUM (NA) 138 MEQ/L (136-145); TOTAL BILIRUBIN ADULT 0.4 MG/DL (0.2-1.0); TOTAL PROTEIN 5.2 GM/DL (6.4-8.2)
[2017-06-20] MEDS: SODIUM CHLORIDE 0.9% FLUSH 10 ML FLUSH IV FLUSH SCH (09:00)
[2017-06-20 09:20] LABS: HEMATOCRIT 21.9 % (35.0-46.0)
[2017-06-20 09:25] LABS: HEMOGLOBIN 6.9 GM/DL (11.6-15.3)
[2017-06-20] MEDS ORDERED: IRON SUCROSE 100 MG/5 ML VIAL IV PUSH ONE (09:45)
--- NOTE | 2017-06-20 09:58 | HHI.OB ---
Subjective Remarks States pain is 2 of 10 fundus very tender minimal lochia realizes her Hgb under 7. States she usually runs around 8-9 due to thalassemia ( in family and not personally confirmed) clinical EBL yesterday was 1000 and she did have some atony in post op resolved with massage and hemobate Wants to be discharged today. Wants to go back to work in one week denies headache, blurred vision or any residual LUQ pain Denies dizziness or feeling faint discussed fatigue and post depression. Objective Vitals/I&O Vital Signs Date Time Temp Pulse Resp B/P (MAP) Pulse Ox O2 Delivery O2 Flow Rate FiO2 06/20/17 08:27 83 124/64 (84) 06/20/17 08:27 97.9 20 06/20/17 04:09 79 117/64 (81) 06/20/17 04:09 98.1 16 06/20/17 01:10 16 06/20/17 01:08 80 140/79 (99) 06/19/17 22:24 77 114/57 (76) 06/19/17 22:23 16 06/19/17 22:23 98.6 06/19/17 19:36 97.9 06/19/17 18:54 16 99 06/19/17 18:02 88 128/76 (93) 06/19/17 17:00 98.5 16 99 06/19/17 16:00 80 117/79 (92) 06/19/17 16:00 16 99 06/19/17 15:00 83 112/69 (83) 06/19/17 15:00 16 99 06/19/17 14:03 88 111/70 (84) 06/19/17 14:00 16 99 06/19/17 13:00 97 123/78 (93) 06/19/17 13:00 16 99 06/19/17 12:01 86 113/72 (86) 06/19/17 12:00 16 99 06/19/17 11:00 82 117/79 (92) 06/19/17 11:00 16 06/19/17 11:00 98.3 99 06/19/17 10:00 100 129/80 (96) 06/19/17 09:54 16 99 06/19/17 09:53 92 124/81 (95) Result Diagram: 06/20/17 0845 06/20/17 0659 Objective Remarks GENERAL: Well-nourished, well-developed patient. CARDIOVASCULAR: Regular rate and rhythm without murmurs, gallops, or rubs. RESPIRATORY: Breath sounds equal bilaterally. No accessory muscle use. ABDOMEN/GI: Abdomen soft, non-tender, bowel sounds present. bandage Clean, dry and intact. Fundus: Firm, tender at umbilicus. GENITOURINARY: Light to moderate bleeding. EXTREMITIES: No cyanosis, mild edema, non-tender, without signs of DVT. Medications and IVs Current Medications Medications (Trade) Dose Ordered Sig/Zackery Route Start Time Stop Time Status Last Admin Lactated Ringer's 1,000 ml @ 125 mls/hr Q8H IV 06/19/17 02:18 06/19/17 02:48 Lactated Ringer's 1,000 ml @ 150 mls/hr Q6H40M IV 06/19/17 04:21 06/19/17 04:30 Cefazolin Sodium/ Dextrose 50 ml @ 100 mls/hr [employer] REPRESENTATIVE IV 06/19/17 05:00 06/23/17 04:59 06/19/17 04:10 (Bicitra Liq) 30 ml [employer] REPRESENTATIVE PO 06/19/17 05:30 06/23/17 05:29 Magnesium Sulfate 1,000 ml @ 50 mls/hr Q20H IV 06/19/17 05:37 (Procardia) 10 mg NOW PRN PO 06/19/17 05:45 06/21/17 05:44 (Calcium Gluconate Inj) 1 gm UNSCH PRN IV PUSH 06/19/17 05:45 Oxytocin 500 ml @ 100 mls/hr UNSCH X1 PRN IV 06/19/17 15:45 06/20/17 15:44 (NS Flush) 2 ml BID IV FLUSH 06/19/17 09:00 06/19/17 21:15 (NS Flush) 2 ml UNSCH PRN IV FLUSH 06/19/17 05:45 (Mylicon Chew) 80 mg QID PRN PO 06/19/17 05:45 (Motrin) 600 mg Q6H PRN PO 06/19/17 05:45 06/19/17 21:14 (Percocet 5-325 Mg) 1 tab Q4H PRN PO 06/19/17 05:45 (Percocet 5-325 Mg) 2 tab Q4H PRN PO 06/19/17 05:45 (Marie-Colace) 2 tab Q12H PRN PO 06/19/17 05:45 (Ambien) 5 mg HS PRN PO 06/19/17 05:45 (M-M-R Ii Inj) 0.5 ml ONCE ONCE SQ 06/20/17 16:00 06/20/17 16:01 (Boostrix Inj) 0.5 ml ONCE ONCE IM 06/20/17 16:00 06/20/17 16:01 (Zofran Inj) 4 mg Q6H PRN IV PUSH 06/19/17 05:45 Miscellaneous Information NO SYSTEMIC NARCOTICS TO BE GIVEN FO... UNSCH PRN .XX 06/19/17 11:00 06/20/17 10:59 (Narcan Inj) 0.4 mg UNSCH PRN IV PUSH 06/19/17 11:00 06/20/17 10:59 (Benadryl Inj) 25 mg Q6H PRN IV PUSH 06/19/17 11:00 06/20/17 10:59 (Benadryl) 50 mg Q6H PRN PO 06/19/17 11:00 06/20/17 10:59 06/19/17 18:03 Miscellaneous Information ALL NURSING DEPARTMENTS UNSCH PRN .XX 06/19/17 11:00 06/20/17 10:59 Assessment/Plan Assessment and Plan POD 1 Feels that her hgb is largely dilutional and prefers not to be transfused IV venifer then dc fluid and saline lock repeat labs in am if still low BP and feeling well, can go home tomorrow. Solange Escobar MD Jun 20, 2017 09:58
[2017-06-20] MEDS ORDERED: OXYC1TAB63 PO (10:02)
--- NOTE | 2017-06-20 10:04 | HHI.DCPOC ---
Discharge Care Plan Report Symptoms to Your Doctor -Temperature above 100.5 degrees -Redness, of incision or excessive or foul smelling drainage -Unusual pain or calf pain -Increased vaginal bleeding -Painful or difficulty urinating -Feelings of extreme sadness or anxiety after 2 weeks Goals to Promote Your Health * To prevent worsening of your condition and complications * To maintain your health at the optimal level Directions to Meet Your Goals Take your medications as prescribed Follow your dietary instruction Follow activity as directed Ensure plenty of rest for recovery Drink fluids for hydration Keep your appointments as scheduled Take your immunizations and boosters as scheduled If your symptoms worsen call your PCP, if no PCP go to Urgent Care Center or Emergency Room Smoking is Dangerous to Your Health. Avoid second hand smoke Call the 24-hour crisis hotline for domestic abuse at Solange Escobar MD Jun 20, 2017 10:04
[2017-06-20] MEDS: IBUPROFEN 600 MG TAB PO PRN ×2 (10:43→18:34)
[2017-06-20] MEDS ORDERED: DIPHTH/TETANUS/ACEL PERTUSSIS (BOOSTER) 0.5 ML VIAL/PFS IM ONE (16:00)
[2017-06-20] MEDS ORDERED: MEASLES, MUMPS, RUBELLA VACCINE 0.5 ML VIAL SQ ONE (16:00)
[2017-06-21 05:30] VITALS: RESP 16; TEMP 98.2
[2017-06-21 05:33] VITALS: BP 121/79; PULSE 93
[2017-06-21 07:22] VITALS: BP 112/75; PULSE 91; TEMP 98.2
[2017-06-21] MEDS: IBUPROFEN 600 MG TAB PO PRN (07:36)
[2017-06-21 09:00] LABS: AUTOMATED NEUTROPHIL # 11.8 TH/MM3 (1.8-7.7); BASOPHIL # 0.1 TH/MM3 (0-0.2); BASOPHIL % 0.4 % (0.0-2.0); EOSINOPHIL # 0.1 TH/MM3 (0-0.4); EOSINOPHIL % 0.8 % (0.0-4.0); HEMATOCRIT 22.4 % (35.0-46.0); HEMOGLOBIN 7.1 GM/DL (11.6-15.3); LYMPH % 19.2 % (9.0-44.0); MEAN CORPUSCULAR HEMOGLOBIN 21.8 PG (27.0-34.0); MEAN CORPUSCULAR HGB CONC 31.6 % (32.0-36.0); MEAN PLATELET VOLUME 10.7 FL (7.0-11.0); MONO % 4.5 % (0.0-8.0); MONOCYTE # 0.7 TH/MM3 (0-0.9); NEUT % 75.1 % (16.0-70.0); PLATELET COUNT 134 TH/MM3 (150-450); RED BLOOD COUNT 3.25 MIL/MM3 (4.00-5.30); WHITE BLOOD COUNT 15.7 TH/MM3 (4.0-11.0)
[2017-06-21 09:24] LABS: ALBUMIN 2.4 GM/DL (3.4-5.0); DIRECT BILIRUBIN ADULT 0.1 MG/DL (0.0-0.2)
[2017-06-21 09:25] LABS: INDIRECT BILIRUBIN 0.2 MG/DL (0.0-0.8); TOTAL BILIRUBIN ADULT 0.3 MG/DL (0.2-1.0); TOTAL PROTEIN 5.8 GM/DL (6.4-8.2)
[2017-06-21 11:42] LABS: BANDS 2 % (0-6); BASOPHILS 2 % (0-2); LYMPHOCYTES 11 % (9-44); MONOCYTES 6 % (0-8); MYELOCYTES 1 % (0-0); NEUTROPHIL # MANUAL DIFF 12.6 TH/MM3 (1.8-7.7); POLYS (SEG NEUTROPHILS) 77 % (16-70)
[2017-06-21 11:43] LABS: OVALOCYTES 1+ (NORMAL); TEARDROP RBCS 1+ (NORMAL)
[2017-06-21 11:44] LABS: POLYCHROMASIA 2.6 % (0.0-1.9)
== END 2017-06-21 11:20 | disposition home or self-care (01) | DRG 765 ==
LOC: HOBED 01:55 → H2EA 03:00 → H2EB 07:58
PROVIDERS: ADMIT Obstetrics & Gynecology; ATTEND Obstetrics & Gynecology
PROC: 10D00Z1 Extraction of Products of Conception, Low, Open Approach (ICD-10-PCS; principal; 2017-06-19)
DX: O14.14 Severe pre-eclampsia complicating childbirth (principal); O30.043 Twin pregnancy, dichorionic/diamniotic, third trimester; Z37.2 Twins, both liveborn; Z3A.28 28 weeks gestation of pregnancy
CPT/HCPCS: 80053; 80076; 81001; 84550; 85007; 85014; 85018; 85027; 85384; 85610; 85730; 86850; 86900; 86901; 86920; 88305; 96365; 96375; J0690; J1100; J1170; J1200; J1756; J2175; J2405; J2590; J3010; J3475; J7120; Q0163